=== PATIENT | male | born 1945 | race Caucasian/White ===

== ENCOUNTER → 2016-09-30 | Outpatient (CLI) | payer MEDICARE, OTHER ==
[~2016-09-30] MED LIST: AMLO10TA2 PO; ASPI81CH CHEW; CHOL1TAB7 P-ARTICULR; CO Q10CA PO; FISH500C PO; GLUC1CAP16 PO; METO100T PO; MULT-182 PO; MULT1TAB84 PO; PLAV75TA29 PO; SIMV40TA PO; VITA400T2 PO; VITATAB11 PO
[2016-09-30 10:48] LABS: HEMATOCRIT 44.6 % (39.0-51.0); MEAN CELL VOLUME 89.9 FL (80.0-100.0); MEAN CORPUSCULAR HEMOGLOBIN 30.3 PG (27.0-34.0); MEAN CORPUSCULAR HGB CONC 33.7 % (32.0-36.0); PLATELET COUNT 210 TH/MM3 (150-450); RED BLOOD COUNT 4.97 MIL/MM3 (4.50-5.90); RED CELL DISTRIBUTION WIDTH 12.6 % (11.6-17.2); REVIEW FLAG FINAL; WHITE BLOOD COUNT 6.7 TH/MM3 (4.0-11.0)
== END ==
LOC: PHPRE 10:11
PROVIDERS: ATTEND Ophthalmology
DX: Z01.812 Encounter for preprocedural laboratory examination (principal); H25.89 Other age-related cataract
CPT/HCPCS: 36415; 85027

== ENCOUNTER → 2016-10-14 | Day surgery (SDC) | payer MEDICARE, OTHER ==
--- NOTE | 2016-10-01 15:36 | MH ---
cc: GAURANG ANGLIN M.D. [facility], DATE OF ADMISSION: 10/14/2016 ADMISSION DIAGNOSIS Cataract, left eye. HISTORY OF PRESENT ILLNESS This 71-year-old white male is coming through [facility] for the purpose of a lens extraction of the left eye with intraocular lens implant under local anesthesia. He has noted decreasing visual acuity interfering with his daily activities and elected to have the above procedure. His best-corrected visual acuity is 20/40 in each eye. PAST MEDICAL HISTORY 1. Hypertension. 2. Cholesterol problems. 3. Coronary artery disease. 4. 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 PAST SURGICAL HISTORY 1. Testicular cancer in 1979. 2. Cardiac stent placed in 2012. MEDICATIONS Daily medications include: 1. Metoprolol. 2. Amlodipine. 3. Simvastatin. 4. Plavix. 5. 81 mg of aspirin. 6. Multivitamins. 7. Fish oil. 8. Vitamin-D. 9. CoQ10. 10. Glucosamine/chondroitin. ALLERGIES He has no known allergies. SOCIAL HISTORY The patient does have a history of smoking one-half pack per day for 50 years, does not drink alcohol. FAMILY HISTORY Noncontributory. REVIEW OF SYSTEMS HEAD: Patient denies severe headaches, dizziness or recent head injury. EARS: Patient denies hearing loss, ear pain, discharge or ringing in the ears. NOSE: Patient denies nasal discharge, obstruction or frequent colds. MOUTH AND THROAT: Patient denies soreness of the mouth or tongue, bleeding gums, trouble swallowing, changes in voice or sore throat. NECK: Patient denies neck pain or swelling, limitation of neck movement or neck injury. CARDIOPULMONARY SYSTEM: Patient denies shortness of breath, orthopnea, chronic cough, sputum production, hemoptysis, chest pain, wheezing, palpitations or light-headedness. GI SYSTEM: The patient has hemorrhoids. Patient denies poor appetite, nausea, vomiting, abdominal pain, ulcers, or change in bowel habits. SYSTEM: The patient denies urinary frequency, dysuria, change in urine color. NERVOUS SYSTEM: The patient had a TIA two or three years ago with the history of the left carotid blocked. Patient denies convulsions, vertigo, numbness or weakness. PHYSICAL EXAMINATION VITAL SIGNS: Blood pressure 106/60, pulse 64, respirations 16. HEAD: Normocephalic, atraumatic. NOSE: Without rhinorrhea. THROAT: Clear. NECK: Supple. CHEST: Clear. HEART: Regular rhythm. ABDOMEN: Without tenderness. EXTREMITIES: Without edema. NEUROLOGIC: Within normal limits. MENTAL STATUS: Within normal limits. EYE EXAM: The patient's best-corrected visual acuity is 20/40 in each eye. Visual hemphill are full to confrontation testing. Extraocular muscle exam reveals full versions with orthophoria in the distance and exophoria at near. Pupils are 3.5 mm, equal, round, and reactive to light without afferent defect. Anterior segment examination reveals dermatochalasis of the eyelid skin and conjunctival pinguecula. There are nuclear sclerotic and cortical cataract changes bilaterally, greater in the left eye than the right. Intraocular pressure is 14 in the right eye and 13 in the left by applanation tonometry. Dilated fundus exam revealed sharp disks with cup-to-disk ratio 0.3 bilaterally. The macula is clear bilaterally. A posterior vitreous detachment is present in the right eye. The background in the left eye is within normal limits. IMPRESSION 1. Bilateral cataracts, left eye greater than right. 2. Dermatochalasis. 3. Posterior vitreous detachment, right eye. 4. Pinguecula. PLAN The plan is lens extraction of the left eye with intraocular lens implant under local anesthesia through [facility]. Iris retractors will be used in this patient if his pupil does not dilate adequately. The patient has been cleared medically. He has been counseled as to the risks, benefits and alternatives and elected to proceed. I feel that cataract surgery will improve the quality of life and activities of daily living in this patient. MD LISA Garcia/KANE /3:17 PM /3:24 PM
[~2016-10-14] VITALS: Ht 182.9 cm; Wt 78.0 kg
[~2016-10-14] MED LIST changes: +ACETYLCHOLINE CHL OPHT SOLN 1:100 2 ML VIAL ONE; +CYCLOPENTOLATE HCL 1% OPHT SOLN 2 ML BTL ONE; +DICLOFENAC SOD 0.1% OPHT SOLN 2.5 ML BTL ONE; +EPINEPHrine HCL (1:1000) 1 MG/ML VIAL ONE; +GATIFLOXACIN 0.5% OPHT SOLN 2.5 ML BTL ONE; +HYALURONIDASE/LIDOCAINE/BUPIVACAINE 4.5 ML SYR ONE; +HYALURONIDASE/LIDOCAINE/BUPIVACAINE 6 ML SYR ONE; +PHENYLEPHRINE HCL 2.5% OPTH SOLN 2 ML BTL ONE; +PILOCARPINE HCL 2% OPHT SOLN 15 ML BTL ONE; +PROPARACAINE HCL 0.5% OPHT SOLN 15 ML BTL ONE; +PROPOFOL 200 MG/20 ML AMP ONE; +SODIUM CHLORID 0.9% 500 ML INJ 500 ML ONE; +TOBRAMYCIN/DEXAMETHASONE OPTH OINT 3.5 GM TUBE ONE; +TROPICAMIDE 1% OPHT SOLN 15 ML BTL ONE
[2016-10-14 06:58] VITALS: BP 131/77; PULSE 58; RESP 20; TEMP 98; O2SAT 96
[2016-10-14 07:10] VITALS: PULSE 58
[2016-10-14 07:25] VITALS: PULSE 57
[2016-10-14 08:45] VITALS: TEMP 98
[2016-10-14 09:00] VITALS: BP 118/74; PULSE 59; RESP 16; O2SAT 96
--- NOTE | 2016-10-15 13:34 | MP ---
cc: GAURANG AYALA M.D. DATE OF SURGERY 10/14/2016 PREOPERATIVE DIAGNOSIS Cataract left eye POSTOPERATIVE DIAGNOSIS Cataract left eye. OPERATION Extracapsular cataract extraction with posterior chamber intraocular lens implant by phacoemulsification, left eye. SURGEON Gaurang Ayala M.D. ANESTHESIA Local COMPLICATIONS None INDICATIONS See history and physical previously dictated. OPERATIVE PROCEDURE The patient had adequate retrobulbar and eyelid blocks administered in the holding area and was brought to the operating room. The left eye was prepped and draped in the usual sterile ophthalmic manner. A lid speculum was inserted in the left eye. A 4-0 silk bridle suture was placed through the conjunctiva near the superior rectus muscle and it was tagged to the drape. A fornix-based conjunctival flap was prepared spanning approximately 5 mm in width. Hemostasis was obtained with wet-field cautery. A 3.5 mm groove was made 1 mm from the limbus and dissected up to the limbus in the form of a scleral pocket incision. A stab incision was then made at the 2 o'clock position. Viscoelastic was injected into the anterior chamber. The anterior chamber was entered with a 2.75 mm keratome through the scleral pocket incision. A 360 degree continuous curvilinear capsulorrhexis was then performed. Hydrodissection was utilized to divide the nucleus into inner and outer components and to separate the cortex from the capsule. Phacoemulsification was then utilized to remove the nucleus. The outer nuclear layer was removed with irrigation and aspiration and short bursts of ultrasound as necessary. The cortex was removed with the irrigation/aspiration handpiece. The posterior capsule was polished with the capsule polisher. Viscoelastic was injected into the capsular bag. The intraocular lens was inspected and found to be in good condition. The lens utilized was a Rishi, model number SA60AT with a power of +18 diopters. The lens was inserted into the capsular bag. The viscoelastic in the anterior chamber was then removed with the irrigation-aspiration handpiece. Viscoelastic was also removed from beneath the intraocular lens. The anterior chamber was filled with Miochol-E through the stab incision and pressurized. The wound was checked for leaks at this pressure and normalized pressure and there were none. The 4-0 bridle suture was removed. The conjunctival flap was brought down over the wound and secured with cautery. Pilocarpine 2% eye drops were instilled topically. The lid speculum was removed. TobraDex ophthalmic ointment was applied. The eye was double patched and shielded. The patient tolerated the procedure well and left the Operating Room in satisfactory condition. MD LISA Garcia/LAURIE /8:51 AM /1:31 PM
== END | disposition home or self-care (01) ==
LOC: PHSDC 06:06 → EDUNIT# 07:30
PROVIDERS: ATTEND Ophthalmology
DX: H26.9 Unspecified cataract (principal); H43.813 Vitreous degeneration, bilateral; I25.10 Atherosclerotic heart disease of native coronary artery without angina pectoris; I10 Essential (primary) hypertension; Z79.82 Long term (current) use of aspirin; Z95.5 Presence of coronary angioplasty implant and graft; Z87.891 Personal history of nicotine dependence
CPT/HCPCS: 00142; 66984; J0171; J7040; V2632

== ENCOUNTER → 2016-11-11 | Outpatient (CLI) | payer MEDICARE, OTHER ==
[~2016-11-11] MED LIST changes: -ACETYLCHOLINE CHL OPHT SOLN 1:100 2 ML VIAL ONE; -CYCLOPENTOLATE HCL 1% OPHT SOLN 2 ML BTL ONE; -DICLOFENAC SOD 0.1% OPHT SOLN 2.5 ML BTL ONE; -EPINEPHrine HCL (1:1000) 1 MG/ML VIAL ONE; -GATIFLOXACIN 0.5% OPHT SOLN 2.5 ML BTL ONE; -HYALURONIDASE/LIDOCAINE/BUPIVACAINE 4.5 ML SYR ONE; -HYALURONIDASE/LIDOCAINE/BUPIVACAINE 6 ML SYR ONE; -PHENYLEPHRINE HCL 2.5% OPTH SOLN 2 ML BTL ONE; -PILOCARPINE HCL 2% OPHT SOLN 15 ML BTL ONE; -PROPARACAINE HCL 0.5% OPHT SOLN 15 ML BTL ONE; -PROPOFOL 200 MG/20 ML AMP ONE; -SODIUM CHLORID 0.9% 500 ML INJ 500 ML ONE; -TOBRAMYCIN/DEXAMETHASONE OPTH OINT 3.5 GM TUBE ONE; -TROPICAMIDE 1% OPHT SOLN 15 ML BTL ONE
[2016-11-11 11:10] LABS: AUTOMATED NEUTROPHIL # 4.2 TH/MM3 (1.8-7.7); BASOPHIL # 0.1 TH/MM3 (0-0.2); BASOPHIL % 0.9 % (0.0-2.0); EOSINOPHIL # 0.2 TH/MM3 (0-0.4); EOSINOPHIL % 3.8 % (0.0-4.0); HEMATOCRIT 43.8 % (39.0-51.0); HEMO FLAGS DIFF FINAL; LYMPH % 19.9 % (9.0-44.0); LYMPHOCYTE # 1.3 TH/MM3 (1.0-4.8); MEAN CELL VOLUME 89.8 FL (80.0-100.0); MEAN CORPUSCULAR HEMOGLOBIN 30.7 PG (27.0-34.0); MEAN CORPUSCULAR HGB CONC 34.2 % (32.0-36.0); MONO % 8.7 % (0.0-8.0); NEUT % 66.7 % (16.0-70.0); PLATELET COUNT 192 TH/MM3 (150-450); RED BLOOD COUNT 4.88 MIL/MM3 (4.50-5.90); RED CELL DISTRIBUTION WIDTH 12.2 % (11.6-17.2); WHITE BLOOD COUNT 6.4 TH/MM3 (4.0-11.0)
== END ==
LOC: PHPRE 10:27
PROVIDERS: ATTEND Ophthalmology
DX: Z01.812 Encounter for preprocedural laboratory examination (principal); H26.9 Unspecified cataract
CPT/HCPCS: 85025

== ENCOUNTER → 2016-12-02 | Day surgery (SDC) | payer MEDICARE, OTHER ==
--- NOTE | 2016-11-14 07:59 | MH ---
cc: GAURANG ANGLIN DATE OF ADMISSION: 12/02/2016 ADMISSION DIAGNOSIS Cataract right eye. HISTORY OF PRESENT ILLNESS This 71-year-old white male is coming through [facility] for the purpose of a lens extraction of the right eye with intraocular lens implant under local anesthesia. He had a similar procedure in the left eye in September of this year and did well postoperatively and now is requesting cataract surgery for his right eye. His best corrected visual acuity is 20/40 +2 in the right eye and 20/25 in the left. PAST MEDICAL HISTORY The patient has a history of - 1. Hypertension. 2. Cholesterol problems. 3. Coronary artery disease. 4. He states his left carotid artery is 100% blocked and inoperable. PAST SURGICAL HISTORY 1. Testicular cancer in 1979. 2. Cardiac stent in 2012. 3. The above-mentioned cataract surgery in the left eye with intraocular lens implant October 14, 2016. DAILY MEDICATIONS 1. Metoprolol. 2. Amlodipine. 3. Simvastatin. 4. Plavix. 5. Aspirin 81 mg. 6. Vitamins. 7. Fish oil. 8. CoQ10. 9. Glucosamine chondroitin. ALLERGIES He has no known allergies. SOCIAL HISTORY The patient does have a history of 1/2-pack per day smoking for 50 years and does not drink alcohol. FAMILY HISTORY Non-contributory. REVIEW OF SYSTEMS HEAD: Patient denies severe headaches, dizziness or recent head injury. EARS: Patient denies hearing loss, ear pain, discharge or ringing in the ears. NOSE: Patient denies nasal discharge, obstruction or frequent colds. MOUTH AND THROAT: Patient denies soreness of the mouth or tongue, bleeding gums, trouble swallowing, changes in voice or sore throat. NECK: Patient denies neck pain or swelling, limitation of neck movement or neck injury. CARDIOPULMONARY SYSTEM: Patient denies shortness of breath, orthopnea, chronic cough, sputum production, hemoptysis, chest pain, wheezing, palpitations or light-headedness. GI SYSTEM: Patient denies poor appetite, nausea, vomiting, abdominal pain, ulcers, or change in bowel habits. Positive for hemorrhoids. SYSTEM: The patient denies urinary frequency, dysuria, change in urine color. NERVOUS SYSTEM: He had 2-3 TIAs about four years ago with the left carotid artery being clogged. Patient denies convulsions, vertigo, stroke, numbness or weakness. PHYSICAL EXAMINATION: VITAL SIGNS: Blood pressure 112/60, pulse 64, respirations 16. HEAD: Normocephalic, atraumatic. NOSE: Without rhinorrhea. THROAT: Clear. NECK: Supple. CHEST: Clear. HEART: Regular rhythm. ABDOMEN: Without tenderness. EXTREMITIES: Without edema. NEUROLOGIC: Within normal limits. MENTAL STATUS: Within normal limits. EYE EXAM: The patient's best corrected visual acuity is 20/40 +2 in the right eye and 20/25 in the left eye. Visual hemphill are full to confrontation testing. Extraocular muscle exam reveals full versions with orthophoria in the distance and exophoria at near. Pupils are 3.5 mm, equal, round, and reactive to light without afferent defect. The anterior segment examination reveals dermatochalasis of the eyelid skin, conjunctivae pingueculae. There is a nuclear sclerotic and cortical cataract present in the right eye and a posterior chamber intraocular lens present in the left. Intraocular pressure is 11 in the right eye and 9 in the left by applanation tonometry. Dilated fundus exam revealed sharp disks with cup-to-disk ratio of 0.3 bilaterally. The maculae are clear bilaterally. A posterior vitreous detachment is noted in the right eye. IMPRESSION 1. Cataract right eye. 2. Posterior vitreous detachment right eye. 3. Pseudophakia left eye. PLAN Lens extraction of the right eye with intraocular lens implant under local anesthesia through [facility]. The patient has been cleared medically. He has been counseled as to the risks, benefits and alternatives and elected to proceed. I feel that cataract surgery will improve the quality of life and activities of daily living in this patient. MD LISA Garcia/NING /7:40 AM /3:40 PM
[~2016-12-02] VITALS: Ht 182.9 cm; Wt 77.3 kg
[~2016-12-02] MED LIST changes: +ACETYLCHOLINE CHL OPHT SOLN 1:100 2 ML VIAL ONE; +CYCLOPENTOLATE HCL 1% OPHT SOLN 2 ML BTL ONE; +DICLOFENAC SOD 0.1% OPHT SOLN 2.5 ML BTL ONE; +EPINEPHrine HCL (1:1000) 1 MG/ML VIAL ONE; +GATIFLOXACIN 0.5% OPHT SOLN 2.5 ML BTL ONE; +HYALURONIDASE/LIDOCAINE/BUPIVACAINE 4.5 ML SYR ONE; +HYALURONIDASE/LIDOCAINE/BUPIVACAINE 6 ML SYR ONE; -MULT1TAB84 PO; +ONDANSETRON HCL 4 MG/2 ML VIAL IV PUSH ONE; +PHENYLEPHRINE HCL 2.5% OPTH SOLN 2 ML BTL ONE; +PILOCARPINE HCL 2% OPHT SOLN 15 ML BTL ONE; +PROPARACAINE HCL 0.5% OPHT SOLN 15 ML BTL ONE; +PROPOFOL 200 MG/20 ML AMP ONE; +SODIUM CHLORID 0.9% 500 ML INJ 500 ML ONE; +TOBRAMYCIN/DEXAMETHASONE OPTH OINT 3.5 GM TUBE ONE; +TROPICAMIDE 1% OPHT SOLN 15 ML BTL ONE; +VISCOAT OPHT IRRIG SOLN 0.75 ML SYRINGE RIGHT EYE ONE; -VITA400T2 PO
[2016-12-02 06:52] VITALS: BP 129/72; PULSE 56; RESP 20; TEMP 97.9; O2SAT 94
[2016-12-02 07:00] VITALS: PULSE 54
[2016-12-02 09:05] VITALS: BP 123/64; PULSE 52; RESP 16; TEMP 97.9; O2SAT 93
--- NOTE | 2016-12-02 12:04 | MP ---
cc: GAURANG AYALA DATE OF SURGERY: December 02, 2016 PREOPERATIVE DIAGNOSIS: Cataract right eye. POSTOPERATIVE DIAGNOSIS: Cataract right eye. OPERATION: Extracapsular cataract extraction with posterior chamber intraocular lens implant by phacoemulsification, right eye. SURGEON: Gaurang Ayala M.D. ANESTHESIA: Local. COMPLICATIONS: None. INDICATIONS: See history and physical previously dictated. OPERATIVE PROCEDURE: The patient had adequate retrobulbar and eyelid blocks administered in the holding area and was brought to the operating room. The right eye was prepped and draped in the usual sterile ophthalmic manner. A lid speculum was inserted in the right eye. A 4-0 silk bridle suture was placed through the conjunctiva near the superior rectus muscle and it was tagged to the drape. A fornix-based conjunctival flap was prepared spanning approximately 5 mm in width. Hemostasis was obtained with wet-field cautery. A 3.5 mm groove was made 1 mm from the limbus and dissected up to the limbus in the form of a scleral pocket incision. A stab incision was then made at the 2 o'clock position. Viscoelastic was injected into the anterior chamber. The anterior chamber was entered with a 2.75 mm keratome through the scleral pocket incision. A 360 degree continuous curvilinear capsulorrhexis was then performed. Hydrodissection was utilized to divide the nucleus into inner and outer components and to separate the cortex from the capsule. Phacoemulsification was then utilized to remove the nucleus. The outer nuclear layer was removed with irrigation and aspiration and short bursts of ultrasound as necessary. The cortex was removed with the irrigation/aspiration handpiece. The posterior capsule was polished with the capsule polisher. Viscoelastic was injected into the capsular bag. The intraocular lens was inspected and found to be in good condition. The lens utilized was an Rishi, model number SA60AT with a power of +18.5 diopters. The lens was inserted into the capsular bag. The viscoelastic in the anterior chamber was then removed with the irrigation-aspiration handpiece. Viscoelastic was also removed from beneath the intraocular lens. The anterior chamber was filled with Miochol-E through the stab incision and pressurized. The wound was checked for leaks at this pressure and normalized pressure and there were none. The 4-0 bridle suture was removed. The conjunctival flap was brought down over the wound and secured with cautery. Pilocarpine 2% eye drops were instilled topically. The lid speculum was removed. TobraDex ophthalmic ointment was applied. The eye was double patched and shielded. The patient tolerated the procedure well and left the Operating Room in satisfactory condition. MD LISA Garcia/NING /8:33 AM /12:07 PM
== END | disposition home or self-care (01) ==
LOC: PHSDC 06:05
PROVIDERS: ATTEND Ophthalmology
DX: H26.9 Unspecified cataract (principal); H43.811 Vitreous degeneration, right eye; I10 Essential (primary) hypertension; I25.10 Atherosclerotic heart disease of native coronary artery without angina pectoris; Z79.02 Long term (current) use of antithrombotics/antiplatelets; Z79.82 Long term (current) use of aspirin; Z95.5 Presence of coronary angioplasty implant and graft; Z87.891 Personal history of nicotine dependence; Z85.47 Personal history of malignant neoplasm of testis
CPT/HCPCS: 66984; J0171; J2405; J7040; V2632